=== PATIENT | female | born 1945 | race Two or more races ===

== ENCOUNTER 2022-01-15 11:32 | Emergency (ER) | payer MEDICARE, MEDICAID ==
[~2022-01-15] VITALS: Ht 160 cm; Wt 65.0 kg
[2022-01-15 11:39] VITALS: BP 155/47
== END 2022-01-15 18:48 | disposition left against medical advice (07) ==
LOC: ER 13:02
DX: Z53.21 Procedure and treatment not carried out due to patient leaving prior to being seen by health care provider (principal)